=== PATIENT | male | born 1990 | race Caucasian/White ===

== ENCOUNTER 2019-08-03 21:29 | Emergency (ER) | payer OTHER ==
[~2019-08-03] VITALS: Ht 170.2 cm; Wt 104.3 kg
[2019-08-03] MEDS ORDERED: ZOLOFT50 M1 PO (21:58)
[2019-08-03 22:31] LABS: ABSOLUTE EOSINOPHILS 0.1 thou/uL (0.0-0.7); ABSOLUTE LYMPHOCYTES 2.6 thou/uL (0.8-5.3); ABSOLUTE MONOCYTES 0.7 thou/uL (0.0-1.2); ABSOLUTE NEUTROPHILS 2.8 thou/uL (1.6-8.1); BASOPHILS 0.5 %; EOSINOPHILS 1.2 %; HEMATOCRIT 39.2 % (42.0-52.0); HEMOGLOBIN 13.8 gm/dL (14.0-18.0); LYMPHOCYTES 41.7 %; MCH 30.3 pg (26.0-34.0); MCHC 35.1 g/dL (28.0-37.0); MCV 86.4 fL (80.0-100.0); MONOCYTES 11.5 %; MPV 9.1 fl. (7.2-11.1); NUCLEATED RBCS 0 /100WBC; PLATELET COUNT* 261 thou/uL (150-400); POLYS 45.1 %; RBC 4.54 mil/uL (4.50-6.00); RDW-CV 12.8 % (10.5-14.5); WBC 6.2 thou/uL (4.0-11.0)
[2019-08-03 22:37] LABS: CALCIUM 8.6 mg/dL (8.5-10.1); POTASSIUM 3.5 mmol/L (3.5-5.1)
[2019-08-03 22:41] LABS: ALBUMIN 3.8 g/dL (3.4-5.0); TOTAL BILIRUBIN 0.1 mg/dL (<0.1-1.0); TOTAL PROTEIN 7.3 g/dL (6.4-8.2)
[2019-08-03] MEDS ORDERED: TESSALON PERLE100 MG PO (23:00)
[2019-08-03] MEDS ORDERED: PROMETHAZI6.25 MG/5 PO (23:00)
[2019-08-03] MEDS ORDERED: TYLENOL WITH CO1 TA1 PO (23:00)
[2019-08-03 23:15] VITALS: BP 125/72
== END 2019-08-03 23:15 | disposition home or self-care (01) ==
LOC: M.ERS 21:29
PROVIDERS: Physician Assistant
DX: B34.9 Viral infection, unspecified (principal)

== ENCOUNTER 2019-09-01 13:11 | Emergency (ER) | payer OTHER ==
[~2019-09-01] VITALS: Ht 170.2 cm; Wt 99.8 kg
[~2019-09-01 13:11] MED LIST: PROMETHAZI6.25 MG/5 PO; TESSALON PERLE100 MG PO; TYLENOL WITH CO1 TA1 PO; ZOLOFT50 M1 PO
[2019-09-01 14:03] LABS: ABSOLUTE EOSINOPHILS 0.1 thou/uL (0.0-0.7); ABSOLUTE MONOCYTES 0.7 thou/uL (0.0-1.2); ABSOLUTE NEUTROPHILS 5.2 thou/uL (1.6-8.1); BASOPHILS 0.5 %; EOSINOPHILS 1.1 %; HEMATOCRIT 40.2 % (42.0-52.0); LYMPHOCYTES 24.8 %; MCH 30.5 pg (26.0-34.0); MCHC 34.8 g/dL (28.0-37.0); MCV 87.6 fL (80.0-100.0); MONOCYTES 8.4 %; MPV 9.1 fl. (7.2-11.1); NUCLEATED RBCS 0 /100WBC; PLATELET COUNT* 305 thou/uL (150-400); POLYS 65.2 %; RBC 4.59 mil/uL (4.50-6.00)
[2019-09-01 14:11] LABS: CALCIUM 9.3 mg/dL (8.5-10.1); CREATININE 1.1 mg/dL (0.6-1.3); POTASSIUM 4.3 mmol/L (3.5-5.1)
[2019-09-01 14:16] LABS: ALBUMIN 4.3 g/dL (3.4-5.0); TOTAL BILIRUBIN 0.4 mg/dL (<0.1-1.0); TOTAL PROTEIN 7.9 g/dL (6.4-8.2)
--- NOTE | 2019-09-01 15:42 | EKG ---
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
[2019-09-01 16:07] VITALS: BP 132/82
== END 2019-09-01 16:08 | disposition home or self-care (01) ==
LOC: M.ERS 13:11
PROVIDERS: Emergency Medicine
DX: R56.9 Unspecified convulsions (principal)

== ENCOUNTER 2020-10-21 22:50 | Emergency (ER) | payer OTHER ==
[~2020-10-21] VITALS: Ht 170.2 cm; Wt 99.8 kg
[2020-10-21] MEDS ORDERED: TORADOL 10 MG T10 MG PO (23:43)
[2020-10-21] MEDS ORDERED: MELOXICAM15 MG PO (23:43)
[2020-10-21 23:49] VITALS: BP 145/70
== END 2020-10-21 23:50 | disposition home or self-care (01) ==
LOC: M.ERS 22:50
DX: S83.91XA Sprain of unspecified site of right knee, initial encounter (principal); F17.210 Nicotine dependence, cigarettes, uncomplicated; X50.1XXA Overexertion from prolonged static or awkward postures, initial encounter; Y93.89 Activity, other specified; Y92.89 Other specified places as the place of occurrence of the external cause; Y99.8 Other external cause status

== ENCOUNTER 2021-01-05 22:59 | Emergency (ER) | payer OTHER ==
[~2021-01-05] VITALS: Ht 170.2 cm; Wt 99.8 kg
[~2021-01-05 22:59] MED LIST changes: +MELOXICAM15 MG PO; +TORADOL 10 MG T10 MG PO
[2021-01-05] MEDS ORDERED: PROAIR HFA8.5 GM INH (23:08)
[2021-01-05] MEDS ORDERED: RAYOS5 MG PO (23:09)
[2021-01-05 23:50] LABS: ABSOLUTE EOSINOPHILS 0.1 thou/uL (0.0-0.7); ABSOLUTE LYMPHOCYTES 3.2 thou/uL (0.8-5.3); ABSOLUTE MONOCYTES 1.2 thou/uL (0.0-1.2); ABSOLUTE NEUTROPHILS 8.3 thou/uL (1.6-8.1); BASOPHILS 0.4 %; EOSINOPHILS 0.5 %; HEMOGLOBIN 13.3 gm/dL (14.0-18.0); LYMPHOCYTES 25.2 %; MCH 30.3 pg (26.0-34.0); MCHC 34.2 g/dL (28.0-37.0); MCV 88.7 fL (80.0-100.0); MONOCYTES 9.1 %; MPV 9.2 fl. (7.2-11.1); NUCLEATED RBCS 0 /100WBC; PLATELET COUNT* 289 thou/uL (150-400); POLYS 64.8 %; RBC 4.39 mil/uL (4.50-6.00); RDW-CV 12.6 % (10.5-14.5); WBC 12.8 thou/uL (4.0-11.0)
[2021-01-06 00:01] LABS: CALCIUM 8.8 mg/dL (8.5-10.1); POTASSIUM 3.5 mmol/L (3.5-5.1)
[2021-01-06 00:05] LABS: ALBUMIN 3.9 g/dL (3.4-5.0); MAGNESIUM 1.9 mg/dL (1.8-2.4); TOTAL BILIRUBIN 0.1 mg/dL (<0.1-1.0); TOTAL PROTEIN 6.9 g/dL (6.4-8.2)
[2021-01-06 01:56] LABS: URINE BILIRUBIN NEGATIVE (Negative); URINE BLOOD NEGATIVE (Negative); URINE CLARITY CLEAR; URINE COLOR YELLOW; URINE GLUCOSE-RANDOM NEGATIVE (Negative); URINE KETONES NEGATIVE (Negative); URINE LEUKOCYTES-REFLEX NEGATIVE (Negative); URINE NITRITE-REFLEX NEGATIVE (Negative); URINE PROTEIN NEGATIVE (Negative); URINE SPECIFIC GRAVITY >= 1.030 (1.005-1.030); URINE UROBILINOGEN 0.2 E.U./dl (0.2-1.0)
[2021-01-06 02:00] LABS: AMP/METHAMP Negative (Negative); BARBITURATES Negative (Negative); BENZODIAZEPINES Negative (Negative); COCAINE Negative (Negative); METHADONE Negative (Negative); OPIATES Negative (Negative); PCP Negative (Negative); THC Negative (Negative)
[2021-01-06] MEDS ORDERED: PROMETH-CODEIN 65 ML PO (02:21)
[2021-01-06 02:32] VITALS: BP 114/70
--- NOTE | 2021-01-06 10:17 | EKG ---
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[place] : 1990 Requested By: Padma Calderon Order Number: [id number] MD: Gildardo Lassiter Measurements Intervals [place] Rate: 95 P: 57 MI: 160 QRS: 25 QRSD: 92 T: 25 QT: 333 QTc: 419 Interpretive Statements Sinus rhythm Baseline wander in lead(s) V2 Compared to ECG 09/01/2019 13:15:28 No significant changes Electronically Signed On 01-06-2021 10:17:12 CDT by Gildardo Lassiter [email or web address] <ELECTRONICALLY SIGNED> By: Gildardo Lassiter MD, [facility] 01/06/21 1017 2305 2305 Gildardo Lassiter MD, [facility] /EPI
== END 2021-01-06 02:33 | disposition home or self-care (01) ==
LOC: M.ERS 22:59
PROVIDERS: Emergency Medicine
DX: R05 Cough (principal); Z20.822 Contact with and (suspected) exposure to COVID-19; R07.89 Other chest pain; Z87.891 Personal history of nicotine dependence; Z79.899 Other long term (current) drug therapy